=== PATIENT | male | born 1960 | race Caucasian/White ===

== ENCOUNTER 2019-06-06 14:21 | Outpatient (CLI) | payer OTHER, SELFPAY ==
--- NOTE | ~2019-06-06 | XR_ITS ---
EXAMINATION: XR chest 2V EXAM DATE: 06/06/2019 14:34 INDICATION: Cough. TECHNIQUE: Frontal and lateral projections of the chest obtained and reviewed. Comparison is made to prior examination from 04/05/2017. FINDINGS: Biapical opacities unchanged, consistent with scarring. Severe chronic hyperinflation with narrow cardiac silhouette. Left upper lobe nodule is unchanged, consistent with benign process. No a cute airspace disease, pneumothorax or pleural effusion. There are mild bony degenerative changes. Mi ld mid thoracic compression fracture unchanged. IMPRESSION: 1. Chronic findings as above. Reviewed, dictated and finalized at location A. LOT PACKER
== END 2019-06-06 14:22 | disposition home or self-care (01) ==
PROVIDERS: PCP Internal Medicine; Visit Provider Nurse Practitioner
DX: R05 Cough (principal)
CPT/HCPCS: 71046

== ENCOUNTER 2019-06-10 11:06 | Emergency (ER) | payer OTHER, SELFPAY ==
--- NOTE | ~2019-06-10 | CT_ITS ---
EXAMINATION: CT abdomen pelvis w con DATE: 06/10/2019 12:50 INDICATION: Mid abdominal pain. History of testicular cancer. TECHNIQUE: Computed tomography (CT) of the abdomen and pelvis was performed with 100 cc Omnipaque 350 intravenous contrast. Automated exposure control and iterative reconstruction technique were employe d. Exam dose: 179.39 mGy-cm total exam DLP. COMPARISON: 02/17/2017 PET/CT scan FINDINGS: Emphysematous changes are evident in both lower lung zones. Normal heart size. No pericardial or pleural effusion. The gallbladder is relatively contracted. There is some enhancement of the gallbladder wall. No obvio us gallstones is noted. No pericholecystic fluid. No bile duct dilatation is noted. No hepatic space-occupying mass lesion. Borderline prominence of the pancreatic duct at approximately 2 mm diameter. No pancreatic mass lesio n is evident. Normal splenic size. Normal morphology of the adrenal glands. The left kidney is incompletely rotated, the left renal hilum directed anteriorly. There is a several millimeter left renal cyst. The right kidney is unremarkable except for focal scarring posteromedial ly in the mid right kidney. No urinary tract calculus or hydroureteronephrosis.. There is atherosclerotic calcification of the abdominal aorta and iliac arteries but no abdominal aor tic aneurysm. There are numerous surgical clips in the periaortic and aortocaval region. No intraperi toneal or retroperitoneal or pelvic mass lesion or adenopathy or ascites is evident. The prostate appears moderately prominent in size. There is mild diffuse thickening of the urinary bl adder wall. There is minimal free fluid in the dependent pelvis. Minimal colonic diverticulosis. There is a prominent amount of fecal material in the colon. No bowel obstruction is evident. No CT evidence of appendicitis. No bowel obstruction or intraperitoneal free air. There is mild cupping and prominent Schmorl's node of the superior vertebral endplate of L5. No suspicious osteolytic or osteoblastic lesions. IMPRESSION: Emphysema Postoperative changes of the abdomen; no abdominal or pelvic mass or lymphadenopathy is detected Small left renal cysts Minimal colonic diverticulosis Reviewed, dictated and finalized at Location A. Reviewed, dictated and finalized at location A. O CONSULTANT IMPRESSION: Emphysema Postoperative changes of the abdomen; no abdominal or pelvic mass or lymphadeno kyle is detected Small left renal cysts Minimal colonic diverticulosis
[2019-06-10 11:08] VITALS: BP 138/83; PULSE 92; RESP 16; TEMP 37.2; O2SAT 98
[2019-06-10 11:32] LABS: Basophils Percent Auto 0.2 % (0.2-1.2); Hematocrit 43.4 % (42.0-52.0); Hemoglobin 13.7 g/dL (14.0-18.0); Immature Granulocyte Absolute 0.03 K/mm3 (0.00-0.031); Immature Granulocyte Percent A 0.2 % (0-0.5); Lymphocytes Percent Auto 20.3 % (18.3-44.2); Mean Corpuscular HGB Conc 31.6 g/dl (32-36); Mean Corpuscular Hemoglobin 29.4 pg (26-34); Mean Corpuscular Volume 93.1 fl (80-100); Mean Platelet Volume 9.4 fl (7.4-10.4); Monocytes Absolute Auto 0.8 K/mm3 (0.1-0.6); Monocytes Percent Auto 5.8 % (2.6-8.5); Neutrophils Absolute Auto 9.8 K/mm3 (1.3-6.7); Neutrophils Percent Auto 73.5 % (45.5-73.1); Platelet Count Result 312 k/mm3 (150-375); Red Blood Count 4.66 M/mm3 (4.6-6.20); Red Cell Distribution Width 13.2 % (11.5-14.5); White Blood Count 13.3 K/mm3 (4.5-10.0)
[2019-06-10 11:44] LABS: Alanine Aminotransferase 33 U/L (4-50); Albumin Level 4.6 g/dL (3.5-5.1); Alkaline Phosphatase 148 U/L (38-126); Aspartate Amino Transferase 27 U/L (17-59); Bilirubin,Total 0.7 mg/dL (0.2-1.3); Blood Urea Nitrogen 13 mg/dL (9-20); Calcium 9.5 mg/dL (8.4-10.2); Carbon Dioxide 31 mmol/L (22-30); Chloride 96 mmol/L (98-107); Estimated CRCL calculation 64 ml/min; Estimated Glomerular Filt Rate > 60; Glucose 91 mg/dL (75-110); Lipase 77 U/L (23-300); Potassium 3.5 mmol/L (3.4-5.0); Sodium 139 mmol/L (137-145)
--- NOTE | 2019-06-10 12:22 | ED.ABDPAIN ---
HPI - Abdominal Pain General Chief Complaint: Abdominal Pain Stated Complaint: abd pains Time Seen by Provider: 06/10/19 11:50 Source: patient Mode of arrival: ambulatory Limitations: no limitations History of Present Illness HPI narrative: This is a 58 year old male that presents to the ER for mid abdominal pain x 2 days. Reports he was seen by his PCP and started on antibiotics and a steroid for a respiratory infection. Reports the day after he started taking these he started to develop constant mid abdominal pain. Denies fever, chest pain, shortness of breath, vomiting, diarrhea, dysuria or hematuria. Related Data Home Medications Medication Instructions Recorded Confirmed diclofenac sodium 75 mg 75 mg PO BID 05/11/19 05/11/19 tablet,delayed release Allergies Allergy/AdvReac Type Severity Reaction Status Date / Time No Known Allergies Allergy Verified 06/10/19 11:29 Review of Systems Review of Systems: Narrative: CONSTITUTIONAL: Denies fever ENT: Reports congestion CARDIOVASCULAR: Denies chest pain RESPIRATORY: Reports cough. Denies dyspnea. GASTROINTESTINAL: Reports abdominal pain. Denies nausea, vomiting, or diarrhea. GENITOURINARY: Denies dysuria or hematuria. All systems reviewed & are unremarkable except as noted in HPI and below [facility] Social History Social History Smoking status: Former smoker Alcohol intake: current Substance use: never Gender identity (if verbalized by the patient): Male Exam Narrative: Exam Narrative: GENERAL: Well-appearing, this, and in no acute distress. HEAD: Normocephalic, atraumatic. EYES: PERRLA and EOMI. ENT: Nares clear, no rhinorrhea or epistaxis. Mucous membranes moist. Oropharynx without tonsillar hypertrophy exudate or other lesions. Bilateral TMs pearly lopez non-bulging NECK: Supple. No adenopathy or masses. CHEST: Clear to auscultation. No respiratory distress. No wheezes rales or rhonchi HEART: Regular rate and rhythm. No murmur heard. Normal peripheral pulses. ABDOMEN: Soft, nondistended, normal active bowel sounds. Mild tenderness to palpation throughout abdomen, without guarding EXTREMITIES: Normal range of motion. No edema. SKIN: Warm, dry, no rash. NEURO: No focal deficits. Alert and oriented x3. PSYCH: Normal mood and affect Course Vital Signs Vital signs: Vital Signs Temperature 98.9 F 02/09/20 11:08 Pulse Rate 92 06/10/19 11:08 Respiratory Rate 16 06/10/19 11:08 Blood Pressure 138/83 06/10/19 11:08 Pulse Oximetry 98 06/10/19 11:08 Temperature 98.9 F 06/10/19 13:27 Pulse Rate 59 L 06/10/19 13:27 Respiratory Rate 18 06/10/19 13:27 Blood Pressure 134/78 06/10/19 13:27 Pulse Oximetry 97 06/10/19 13:27 MDM - Abdominal Pain MDM Narrative Medical decision making narrative: Patient presents the emergency department for abdominal pain x2 days. Reports he was recently seen by his primary care doctor and placed on an antibiotic for respiratory infection. Patient is afebrile and nontoxic-appearing. Vitals are stable. CBC with mild leukocytosis to 13.3. Patient was also recently on a steroid. Also mild normocytic anemia which seems to be chronic for him. Metabolic panel without acute changes. UA without evidence of infection. CT abdomen pelvis is without acute changes. Patient reports improvement with Tylenol, Pepcid and Zofran. He was instructed to follow-up with his primary care doctor. He was given warnings to return to the ER Lab Data Attestation: I reviewed the patient's lab results. Result diagrams: 06/10/19 11:22 06/10/19 11:22 Labs: Lab Results 06/10/19 06/10/19 06/10/19 Range/Units 11:22 11:22 13:20 WBC 13.3 H (4.5-10.0) K/mm3 RBC 4.66 (4.6-6.20) M/mm3 Hgb 13.7 L (14.0-18.0) g/dL Hct 43.4 (42.0-52.0) % MCV 93.1 (80-100) fl MCH 29.4 (26-34) pg MCHC 31.6 L (32-36) g/dl R
[2019-06-10] MEDS: FAMOTIDINE 20 MG/2 ML VIAL IV PUSH (12:46)
[2019-06-10] MEDS: ONDANSETRON INJ 4 MG/2 ML VIAL IV PUSH (12:46)
[2019-06-10 13:27] VITALS: BP 134/78; PULSE 59; RESP 18; TEMP 37.2; O2SAT 97
[2019-06-10 13:30] LABS: Add Urine Microscopic? YES; Appearance Urine Clear (Clear); Bilirubin Urine Negative (Negative); Blood Urine Negative (Negative); Color Urine Yellow (Yellow); Glucose Urine UA Negative (Negative); Ketones Urine Negative (Negative); Leukocyte Esterase Ur Negative LEU/UL (Negative); Mucus Urine Rare /lpf; Nitrate Urine Negative (Negative); Protein Urine Negative (Negative); RBC Urine 0-2 /hpf (0-2); Squamous Epithelial Cell Urine Rare /hpf (Few); WBC Urine 0-3 /hpf
[2019-06-10 13:34] LABS: Specific Grav Ur 1.046 (1.001-1.035)
[2019-06-10 14:21] VITALS: BP 115/76; PULSE 77; RESP 18; O2SAT 99
== END 2019-06-10 14:22 | disposition home or self-care (01) ==
PROVIDERS: Emergency Provider Emergency Medicine; PCP Internal Medicine
DX: R10.9 Unspecified abdominal pain (principal); Z87.891 Personal history of nicotine dependence; J43.9 Emphysema, unspecified; N28.1 Cyst of kidney, acquired; K57.90 Diverticulosis of intestine, part unspecified, without perforation or abscess without bleeding
CPT/HCPCS: 36415; 74177; 80053; 81001; 83690; 85025; 96365; 96375; 99284; J0131; J2405; Q9967

== ENCOUNTER 2020-05-03 08:40 | Outpatient (CLI) | payer OTHER, SELFPAY ==
[2020-05-03 09:30] LABS: Hematocrit 39.5 % (42.0-52.0); Hemoglobin 12.7 g/dL (14.0-18.0); Mean Corpuscular HGB Conc 32.2 g/dl (32-36); Mean Corpuscular Hemoglobin 29.7 pg (26-34); Mean Corpuscular Volume 92.3 fl (80-100); Mean Platelet Volume 9.6 fl (7.4-10.4); Platelet Count Result 273 k/mm3 (150-375); Red Blood Count 4.28 M/mm3 (4.6-6.20); Red Cell Distribution Width 12.8 % (11.5-14.5); White Blood Count 6.5 K/mm3 (4.5-10.0)
[2020-05-03 09:50] LABS: Alanine Aminotransferase 27 U/L (4-50); Albumin Level 4.2 g/dL (3.5-5.1); Alkaline Phosphatase 116 U/L (38-126); Anion Gap 4 mmol/L (8-16); Aspartate Amino Transferase 33 U/L (17-59); Bilirubin,Total 0.3 mg/dL (0.2-1.3); Blood Urea Nitrogen 11 mg/dL (9-20); Calcium 9.3 mg/dL (8.4-10.2); Carbon Dioxide 33 mmol/L (22-30); Chloride 102 mmol/L (98-107); Cholesterol 189 mg/dL (0-200); Estimated Glomerular Filt Rate > 60; Glucose 104 mg/dL (75-110); HDL Direct 48 mg/dL; Sodium 139 mmol/L (137-145); Triglycerides 164 mg/dL (<150)
[2020-05-03 10:01] LABS: LDL Cholesterol Direct 126 mg/dL
[2020-05-03 10:19] LABS: Thyroid Stimulating Hormone 0.626 uIU/mL (0.465-4.680)
[2020-05-03 10:45] LABS: Hemoglobin A1C 5.5 % (<5.7)
== END 2020-05-03 08:41 | disposition home or self-care (01) ==
PROVIDERS: PCP Internal Medicine; Visit Provider Nurse Practitioner
DX: D72.829 Elevated white blood cell count, unspecified (principal); Z13.6 Encounter for screening for cardiovascular disorders; Z13.1 Encounter for screening for diabetes mellitus; Z13.29 Encounter for screening for other suspected endocrine disorder
CPT/HCPCS: 36415; 80053; 80061; 83036; 84443; 85027

== ENCOUNTER 2020-07-11 14:46 | Outpatient (CLI) | payer OTHER, SELFPAY | END 2020-07-11 14:47 | disposition home or self-care (01) | LOC: ANHCOVIDVC 14:46 | PROVIDERS: PCP Internal Medicine | DX: Z23 Encounter for immunization (principal) | CPT/HCPCS: 0001A; 91300 ==

== ENCOUNTER 2020-08-01 14:46 | Outpatient (CLI) | payer OTHER, SELFPAY | END 2020-08-01 14:47 | disposition home or self-care (01) | LOC: ANHCOVIDVC 14:46 | PROVIDERS: PCP Internal Medicine | DX: Z23 Encounter for immunization (principal) | CPT/HCPCS: 0002A; 91300 ==

== ENCOUNTER 2020-09-06 07:01 | Outpatient (CLI) | payer OTHER, SELFPAY ==
[2020-09-06 07:14] LABS: Basophils Absolute Auto 0.1 K/mm3 (0.0-0.1); Basophils Percent Auto 0.9 % (0.2-1.2); Eosinophils Absolute Auto 0.1 K/mm3 (0-0.3); Eosinophils Percent Auto 1.9 % (0-4.4); Hematocrit 44.7 % (42.0-52.0); Hemoglobin 14.4 g/dL (14.0-18.0); Immature Granulocyte Absolute 0.02 K/mm3 (0.00-0.031); Immature Granulocyte Percent A 0.3 % (0-0.5); Lymphocytes Absolute Auto 1.78 K/mm3 (0.9-3.2); Lymphocytes Percent Auto 25.7 % (18.3-44.2); Mean Corpuscular HGB Conc 32.2 g/dl (32-36); Mean Corpuscular Hemoglobin 29.4 pg (26-34); Mean Corpuscular Volume 91.4 fl (80-100); Mean Platelet Volume 9.9 fl (7.4-10.4); Monocytes Absolute Auto 0.6 K/mm3 (0.1-0.6); Monocytes Percent Auto 9.2 % (2.6-8.5); Neutrophils Absolute Auto 4.3 K/mm3 (1.3-6.7); Platelet Count Result 202 k/mm3 (150-375); Red Blood Count 4.89 M/mm3 (4.6-6.20); Red Cell Distribution Width 12.9 % (11.5-14.5); White Blood Count 6.9 K/mm3 (4.5-10.0)
[2020-09-06 13:37] LABS: Iron 122 ug/dL (49-181)
[2020-09-06 13:46] LABS: Percent Iron Saturation 41 % (20-50)
== END 2020-09-06 07:02 | disposition home or self-care (01) ==
PROVIDERS: PCP Internal Medicine; Visit Provider Internal Medicine
DX: D64.9 Anemia, unspecified (principal)
CPT/HCPCS: 36415; 82728; 83540; 83550; 85025

== ENCOUNTER 2020-09-13 10:33 | Outpatient (CLI) | payer OTHER, SELFPAY ==
[2020-09-13 11:35] LABS: Prostate Specific Antigen 0.3 ng/mL (< OR = 4.0)
== END 2020-09-13 10:34 | disposition home or self-care (01) ==
PROVIDERS: PCP Internal Medicine; Visit Provider Internal Medicine
DX: Z12.5 Encounter for screening for malignant neoplasm of prostate (principal)
CPT/HCPCS: 36415; 84153; G0103

== ENCOUNTER 2021-03-07 10:28 | Outpatient (CLI) | payer OTHER, SELFPAY ==
[2021-03-07 10:52] LABS: Hematocrit 44.3 % (42.0-52.0); Hemoglobin 14.4 g/dL (14.0-18.0)
[2021-03-07 11:00] LABS: Anion Gap 10 mmol/L (8-16); Blood Urea Nitrogen 11 mg/dL (9-20); Calcium 9.7 mg/dL (8.4-10.2); Carbon Dioxide 30 mmol/L (22-30); Chloride 101 mmol/L (98-107); Cholesterol 207 mg/dL (0-200); Estimated Glomerular Filt Rate > 60; Glucose 105 mg/dL (65-110); HDL Direct 57 mg/dL; Potassium 4.1 mmol/L (3.4-5.0); Sodium 141 mmol/L (137-145); Triglycerides 90 mg/dL (<150)
[2021-03-07 11:11] LABS: LDL Cholesterol Direct 130 mg/dL
[2021-03-07 11:30] LABS: Iron 96 ug/dL (49-181)
[2021-03-07 11:41] LABS: Percent Iron Saturation 30 % (20-50)
== END 2021-03-07 10:29 | disposition home or self-care (01) ==
LOC: ANHLAB 10:31
PROVIDERS: PCP Internal Medicine; Visit Provider Internal Medicine
DX: D64.9 Anemia, unspecified (principal); Z13.6 Encounter for screening for cardiovascular disorders; Z13.220 Encounter for screening for lipoid disorders
CPT/HCPCS: 36415; 80048; 80061; 83540; 83550; 85014; 85018

== ENCOUNTER 2021-04-22 16:07 | Outpatient (CLI) | payer OTHER, SELFPAY ==
--- NOTE | ~2021-04-22 | CT_ITS ---
EXAMINATION: CT lung screening DATE: 04/22/2021 16:20 INDICATION: Personal history of nicotine dependence TECHNIQUE: Computed tomography (CT) of the chest was performed without intravenous contrast. The dose -length product was 73.54 mGy-cm. Automated exposure control and iterative reconstruction technique w ere employed. COMPARISON: CT dated 11/26/2017 FINDINGS: Moderate emphysema. There is cavitary mass at the left apex with irregular thickened margin s measuring 6.2 x 5 x 4.1 cm. This mass has progressed in size compared with prior examination. There is right apical pleural thickening/scarring with mild upper lobe bronchiectasis. There is a right pe rifissural nodule measuring 9 mm, axial image 51. The findings in the right upper lobe/apex are uncha nged from prior examination. There is a nodule in the right upper lobe measuring 5 mm greatest dimens ion with internal calcifications, likely postinfectious/inflammatory. No significant pleural or peric ardial effusion. There is atherosclerosis of the aorta and coronary arteries. There are multiple radi odensities overlying the upper abdomen in the retroperitoneum, postsurgical. IMPRESSION: 1. Lung Rads 4B Very Suspicious-recommend follow-up PET/CT scan to assess for abnormal FDG uptake in the upper lobe abnormalities. Alternatively, percutaneous biopsy may be performed. Reviewed, dictated and finalized at location A. DEVELOPER IMPRESSION: 1. Lung Rads 4B Very Suspicious-recommend follow-up PET/CT scan to assess for a bnormal FDG uptake in the upper lobe abnormalities. Alternatively, percutaneous biopsy may be performed.
== END 2021-04-22 16:08 | disposition home or self-care (01) ==
LOC: ANHIMG 16:11
PROVIDERS: PCP Internal Medicine; Visit Provider Nurse Practitioner
DX: Z12.2 Encounter for screening for malignant neoplasm of respiratory organs (principal); Z87.891 Personal history of nicotine dependence
CPT/HCPCS: 71271

== ENCOUNTER 2021-05-26 12:03 | Outpatient (CLI) | payer OTHER, SELFPAY ==
--- NOTE | ~2021-05-26 | PE_ITS ---
EXAMINATION: PET skull to mid thigh DATE: 05/26/2021 14:10 INDICATION: Other nonspecific abnormal finding of lung field. Lung nodule. TECHNIQUE: Blood glucose level was 79 mg/dL. 10.964 mCi of 18-fluorodeoxyglucose (18-FDG) was adminis tered i.v. Low dose computed tomography (CT) images were acquired from the base of the brain to the p roximal thighs for attenuation correction and anatomic localization. Automated exposure control was e mployed. Dose-length product (DLP) was 231 mGy-cm. Positron emission tomography (PET) images were acq uired in the same distribution. COMPARISON: Chest CT 04/22/2021, 11/26/2017, CT abdomen and pelvis 06/10/2019 FINDINGS: Head/neck: There is increased activity in the pharynx without abnormal CT correlate, likely physiolog ic. There are no pathologically enlarged lymph nodes. Chest: There is moderate emphysema. There are chronic airspace opacities with volume loss at right richmond ng apex without increased activity, consistent with scarring. There are airspace opacities with cavit ation without increased activity at left lung apex with change in distribution and morphology from , consistent with scarring. There is an 8 mm nodule with central calcifications without increa sed activity in left upper lobe with improvement from 05/26/2021. There is a 10 mm nodule in right mid dle lobe without increased activity, new from 04/22/21, likely benign. No pleural effusion. The heart size is normal. There are coronary artery calcifications. No pericardial effusion. Abdomen/pelvis/proximal thighs: The liver, gallbladder, spleen, pancreas, right adrenal gland, and ki dneys are normal. There are surgical clips in the retroperitoneum. There are no dilated loops of janay l. There are no pathologically enlarged lymph nodes. There is no free intraperitoneal fluid. IMPRESSION: 1. Multifocal lung findings, likely benign. Continue annual screening with noncontrast low-dose chest CT in 12 months. 2. Moderate emphysema. Reviewed, dictated and finalized at location A. ICULUM WRITER IMPRESSION: 1. Multifocal lung findings, likely benign. Continue annual screening with nonc ontrast low-dose chest CT in 12 months. 2. Moderate emphysema.
[2021-05-26 12:25] LABS: Glucose Point of Care 79 mg/dl (65-105)
== END 2021-05-26 12:04 | disposition home or self-care (01) ==
PROVIDERS: PCP Internal Medicine; Visit Provider Nurse Practitioner
DX: R91.8 Other nonspecific abnormal finding of lung field (principal)
CPT/HCPCS: 78815; A9552

== ENCOUNTER 2022-02-18 10:01 | Outpatient (CLI) | payer OTHER, SELFPAY ==
--- NOTE | 2022-02-26 15:38 | WPDPFTINT ---
PFT Procedure Performed PFT Procedure Performed Spirometry with Pre/Post Bronchodilator Plethysmography (Lung Vol) Diffusing Cap (DLCO) Flow Vol Loop PFT Interpretation DOS: 02/18/2022 REQUESTING: Dr. Zamora REASON FOR TESTING: shortness of breath, emphysema PULMONARY FUNCTION TESTS Results are reliable and reproducible. Spirometry: pre bronchodilator FEV1 is 1.4 L, 38%, severely reduced. Pre bronchodilator FVC is 3.45 L, 73%, mildly reduced. FEV1 / FVC is 41% consistent with severe airflow obstruction. After bronchodilator administration there is a 1% increase in FEV1 and FVC, not significant. Lung volumes: Total lung capacity 106%, 7.57 L, normal. Residual volume 4.12 L, 178%, severe air trapping. RV/TLC is increased 54% consistent with air trapping. Airway resistance elevated 281%. Diffusion: DLCO 13.7, 48% predicted, moderately reduced. DLCO/ VA is 3.28, 79% normal. Flow volume loop: Extreme coving of the expiratory limb consistent with obstruction. IMPRESSION: Severe obstructive ventilatory impairment, severe air trapping and severe diffusion impairment which corrects for alveolar volume. There is no response to bronchodilator. Lack of response to bronchodilator should not preclude use if clinically indicated. Compared to a prior PFT on 07/23/2016 the FEV1 is lower, there is more obstruction, more air trapping, and a larger decreased in diffusion, consistent with progression of emphysema. FEV1 was 1.67 L, 49% and is now 1.4 L, 38%. FVC was 3.17 L and now 3.45 L, has improved now 73% predicted previously 67%. Airflow obstruction was present. There was a significant response to bronchodilator on the prior study FEV1 increased 24% and FVC increased 22%. The total lung capacity was normal 6.9 L, 103%. Air trapping was present residual volume 3.54 154%. Air trapping is worsen. The DLCO was 63% now is 48% however the absolute value has improved, currently 13.7 mils per minute per mm mercury previously was 12.3. Paige Hampton MD
--- NOTE | 2022-02-26 15:50 | WPDSIXMINUTE ---
Six Minute Walk Procedure Procedure Performed Pulmonary Stress Test (6 min walk) Six Minute Walk Six Minute Walk: DOS: ? 02/18/2022 REQUESTING:? Dr. Zamora REASON FOR TESTING: ? shortness of breath, emphysema SIX MINUTE WALK This test was conducted per ats guidelines. Initial saturation was 98% and pulse was 99. The patient walked while breathing room air. The lowest saturation while walking was 94%. Maximum heart rate 107. Distance walked was 1100 ft, 335 m. Patient did not stop to rest. At the end of the study saturation was 94% pulse was 107. After 2 minutes of recovery saturation returned to 98% pulse was 94. IMPRESSION: This is a normal walk study. There is no requirement for oxygen with exertion. Distance walked is adequate for age.
== END 2022-02-18 10:02 | disposition home or self-care (01) ==
LOC: ANHPFT 10:02
PROVIDERS: PCP Internal Medicine; Visit Provider Internal Medicine Pulmonary Disease
DX: J40 Bronchitis, not specified as acute or chronic (principal); R06.00 Dyspnea, unspecified; Z72.0 Tobacco use
CPT/HCPCS: 94060; 94618; 94726; 94729

== ENCOUNTER 2022-04-28 09:15 | Outpatient (CLI) | payer OTHER, SELFPAY ==
--- NOTE | ~2022-04-28 | CT_ITS ---
EXAMINATION: CT lung screening DATE: 04/28/2022 09:41 INDICATION: Personal history of nicotine dependence, prior smoker with 67 pack year history TECHNIQUE: Computed tomography (CT) of the chest was performed without intravenous contrast. The dose -length product (DLP) was 67.81 mGy-cm. Automated exposure control and iterative reconstruction techn Dockerue were employed. COMPARISON: 04/22/2021 FINDINGS: There is moderate emphysema. An area of chronic scarring and cavitation is noted in the lef t lung apex. There is chronic scarring of the right lung apex. There are stable 3 mm and 7 mm nodules of the right upper lobe. No pleural effusion or pneumothorax. No pathologically enlarged thoracic ly mph nodes are identified. The heart size is normal. There is calcified coronary artery atherosclerosi s. Retroperitoneal surgical clips are noted. IMPRESSION: 1. Lung-RADS category 2: Benign appearance or behavior. Continue annual screening with noncontrast lo w-dose chest CT in 12 months. Reviewed, dictated and finalized at location B. SAFETY DIRECTOR IMPRESSION: 1. Lung-RADS category 2: Benign appearance or behavior. Continue annual screeni ng with noncontrast low-dose chest CT in 12 months.
== END 2022-04-28 09:16 | disposition home or self-care (01) ==
PROVIDERS: PCP Internal Medicine; Visit Provider Internal Medicine Pulmonary Disease
DX: Z12.2 Encounter for screening for malignant neoplasm of respiratory organs (principal); Z87.891 Personal history of nicotine dependence
CPT/HCPCS: 71271

== ENCOUNTER 2022-05-22 10:10 | Outpatient (CLI) | payer OTHER, SELFPAY ==
[2022-05-22 11:02] LABS: Anion Gap 4 mmol/L (8-16); Blood Urea Nitrogen 8 mg/dL (9-20); Calcium 8.9 mg/dL (8.4-10.2); Carbon Dioxide 32 mmol/L (22-30); Chloride 104 mmol/L (98-107); Cholesterol 196 mg/dL (0-200); Estimated Glomerular Filt Rate > 60; Glucose 102 mg/dL (65-110); HDL Direct 45 mg/dL; Sodium 140 mmol/L (137-145); Triglycerides 79 mg/dL (<150)
[2022-05-22 11:14] LABS: LDL Cholesterol Direct 119 mg/dL
[2022-05-22 11:32] LABS: Prostate Specific Antigen 0.3 ng/mL (< OR = 4.0)
== END 2022-05-22 10:11 | disposition home or self-care (01) ==
LOC: ANHLAB 10:12
PROVIDERS: PCP Internal Medicine; Visit Provider Internal Medicine
DX: Z13.220 Encounter for screening for lipoid disorders (principal); Z12.5 Encounter for screening for malignant neoplasm of prostate; Z13.6 Encounter for screening for cardiovascular disorders
CPT/HCPCS: 36415; 80048; 80061; 84153; G0103

== ENCOUNTER 2022-06-07 15:53 | Outpatient (CLI) | payer OTHER, SELFPAY ==
[2022-06-09 18:48] LABS: PCP NEGATIVE ng/mL (<25)
[2022-06-14 08:45] LABS: Amphetamines Negative; Barbiturates Negative; Marijuana Metabolites Positive
[2022-06-14 08:46] LABS: Benzodiazepines Negative; Cocaine Metabolites Negative
== END 2022-06-07 15:54 | disposition home or self-care (01) ==
PROVIDERS: PCP Internal Medicine; Visit Provider Internal Medicine
DX: Z79.899 Other long term (current) drug therapy (principal)
CPT/HCPCS: 80307

== ENCOUNTER 2023-04-29 12:29 | Outpatient (CLI) | payer OTHER, SELFPAY ==
--- NOTE | ~2023-04-29 | CT_ITS ---
EXAMINATION: CT lung screening DATE: 04/29/2023 12:45 INDICATION: Lung cancer screening. Personal history of nicotine dependence. TECHNIQUE: Computed tomography (CT) of the chest was performed without intravenous contrast. The dose -length product was 80.64 mGy-cm. Automated exposure control and iterative reconstruction technique w ere employed. COMPARISON: CT dated 04/28/2022 FINDINGS: Stable pleural thickening/scarring at the lung apices with cavitation at the left apex. Sta ble scarring along the major fissure on the right with nodularity measuring 6 mm along the fissure. S evere emphysema. There is atherosclerosis of the aorta and coronary arteries. No significant pleural or pericardial ef fusion. There are surgical changes in the upper abdomen. No thoracic lymphadenopathy. Stable 3 mm rig ht upper lobe nodule. Mild wedge compression deformities of the midthoracic spine, likely chronic. Ac centuated kyphosis. No focal lytic or blastic lesions. IMPRESSION: 1. Lung-RADS category 2: Benign appearance or behavior. Continue annual screening with noncontrast lo w-dose chest CT in 12 months. Reviewed, dictated and finalized at location A. MERY WORKER IMPRESSION: 1. Lung-RADS category 2: Benign appearance or behavior. Continue annual screeni ng with noncontrast low-dose chest CT in 12 months.
== END 2023-04-29 12:30 | disposition home or self-care (01) ==
LOC: ANHIMG 12:32
PROVIDERS: PCP Nurse Practitioner; Visit Provider Internal Medicine Pulmonary Disease
DX: Z12.2 Encounter for screening for malignant neoplasm of respiratory organs (principal); R91.8 Other nonspecific abnormal finding of lung field; Z87.891 Personal history of nicotine dependence
CPT/HCPCS: 71271

== ENCOUNTER 2023-06-04 09:28 | Outpatient (CLI) | payer OTHER, SELFPAY ==
[2023-06-04 10:24] LABS: Hemoglobin 13.1 g/dL (14.0-18.0); Mean Corpuscular Volume 90.7 fl (80-100); Mean Platelet Volume 9.5 fl (7.4-10.4); Platelet Count Result 265 k/mm3 (150-375); Red Blood Count 4.52 M/mm3 (4.6-6.20); Red Cell Distribution Width 13.2 % (11.5-14.5); White Blood Count 5.2 K/mm3 (4.5-10.0)
[2023-06-04 10:34] LABS: Alanine Aminotransferase 16 U/L (6-50); Albumin Level 4.2 g/dL (3.5-5.1); Alkaline Phosphatase 97 U/L (38-126); Anion Gap 7 mmol/L (8-16); Aspartate Amino Transferase 26 U/L (17-59); Bilirubin,Total 0.7 mg/dL (0.2-1.3); Blood Urea Nitrogen 8 mg/dL (9-20); Carbon Dioxide 27 mmol/L (22-30); Chloride 104 mmol/L (98-107); Cholesterol 187 mg/dL (0-200); Estimated Glomerular Filt Rate > 60; Glucose 87 mg/dL (65-110); HDL Direct 50 mg/dL; Potassium 3.9 mmol/L (3.4-5.0); Sodium 138 mmol/L (137-145); Triglycerides 69 mg/dL (<150)
[2023-06-04 10:45] LABS: LDL Cholesterol Direct 120 mg/dL
[2023-06-04 11:05] LABS: Prostate Specific Antigen 0.4 ng/mL (< OR = 4.0)
== END 2023-06-04 09:29 | disposition home or self-care (01) ==
LOC: ANHLAB 09:29
PROVIDERS: PCP Nurse Practitioner; Visit Provider Nurse Practitioner
DX: Z00.00 Encounter for general adult medical examination without abnormal findings (principal); Z12.5 Encounter for screening for malignant neoplasm of prostate
CPT/HCPCS: 36415; 80053; 80061; 84153; 85027; G0103

== ENCOUNTER 2024-02-20 08:30 | Outpatient (CLI) | payer OTHER, SELFPAY ==
--- NOTE | ~2024-02-20 | NM_ITS ---
EXAMINATION: NM antonina stress w perfusion DATE: 02/20/2024 12:13 CDT INDICATION: Dyspnea TECHNIQUE: Rest images were obtained following intravenous administration of 10.2 mCi Tc99m tetrofosm in (Myoview). The patient was infused intravenously with Lexiscan (regadenoson). Then, 30 mCi Tc99m t etrofosmin (Myoview) was administered intravenously, and stress images were obtained. Data was recons tructed into short axis and horizontal and vertical long axis SPECT images. Gated SPECT images were a lso obtained. COMPARISON: None. FINDINGS: There is no definite reversible or fixed perfusion abnormality to suggest ischemia or infar ction. There is no segmental wall motion abnormality. Left ventricular ejection fraction measures 6 7%. IMPRESSION: 1. No definite ischemia or infarct. 2. Normal left ventricular ejection fraction measuring 67%. Reviewed, dictated and finalized at location B.
--- NOTE | 2024-02-20 08:43 | EST_ITS ---
Patient Info Name: Umer Velasquez Age: 63 years : 1960 Gender: Male Ht: 70 in Wt: 125 lbs BSA: 1.66 m2 HR: 55 bpm BP: 126 / 86 mmHg Exam Date: 02/20/2024 10:38 AM Exam Location: [facility] Lab Patient Status: Outpatient Admit Date: 02/20/2024 Staff Ordering Physician: Wily Mcgill DO Attending Provider: Wily Mcgill DO Exercise Technologist: Mary Herring RDCS Exercise Physician: Wily Mcgill DO Exam Type: CA stress antonina w NM Study Info A regadenoson stress test was performed. Summary 1. 1. Negative lexiscan stress test for ischemic ST changes by ECG criteria. 2. 2. Stable hemodynamics throughout the test. 3. 3. Nuclear scan to follow and will be reported separately. Please correlate with it. 4. 4. Patient informed of the above results. Protocol: Lexiscan Stress ECG Details Stage: REST Duration (min): 0 min : 58 sec HR (bpm): 54 SBP (mmHg): 126 DBP (mmHg): 86 Stage: REST Duration (min): 5 min : 30 sec HR (bpm): 66 SBP (mmHg): 126 DBP (mmHg): 86 Stage: STAGE 1 Duration (min): 0 min : 59 sec HR (bpm): 92 SBP (mmHg): 130 DBP (mmHg): 85 Stage: RECOVERY Duration (min): 1 min : 0 sec HR (bpm): 94 SBP (mmHg): 130 DBP (mmHg): 85 Stage: RECOVERY Duration (min): 2 min : 0 sec HR (bpm): 84 SBP (mmHg): 130 DBP (mmHg): 85 Stage: RECOVERY Duration (min): 3 min : 0 sec HR (bpm): 75 SBP (mmHg): 114 DBP (mmHg): 72 Stage: RECOVERY Duration (min): 3 min : 5 sec HR (bpm): 76 SBP (mmHg): 114 DBP (mmHg): 72 Rest HR: 66 bpm Peak HR: 98 bpm Rest Sys BP: 126 mmHg Peak Sys BP: 130 mmHg Max Pred HR: 157 bpm % Max Pred HR: 62 % Target HR: 133 bpm Max RPP: 12,740 bpm*mmHg Termination Reason: Completed protocol Cardiac Symptoms: Shortness of breath Total Time: 1 min : 0 sec Rest [place] BP: 86 mmHg Peak [place] BP: 85 mmHg Total Dose: 0.4 mg Resting ECG Sinus rhythm. Stress ECG No ST changes. Arrhythmias None. Report Signatures
--- NOTE | 2024-02-20 08:43 | ECHO_ITS ---
Patient Info Name: Umer Velasquez Age: 63 years : 1960 Gender: Male Ht: 70 in Wt: 125 lbs BSA: 1.66 m2 HR: 63 bpm BP: 106 / 70 mmHg Heart Rhythm: Sinus Rhythm Technical Quality: Good Exam Date: 02/20/2024 8:57 AM Exam Location: Echo Lab Patient Status: Outpatient Admit Date: 02/20/2024 Staff Ordering Physician: Wily Mcgill DO Tire Changer: Brianne Giraldo RDCS Attending Provider: Wily Mcgill DO Referring Physician: Artem GIBSON; Exam Type: CA echo doppler color flow Study Info Indications - other forms of dyspnea Complete two-dimensional, color flow and Doppler transthoracic echocardiogram is performed. Summary 1. Complete two-dimensional, color flow and Doppler transthoracic echocardiogram is performed. 2. Left ventricular chamber dimension is normal. 3. Left ventricular systolic function is normal, estimated at 60-65%. 4. The left ventricular diastolic function is grade I diastolic dysfunction. 5. E/e' 8 is minimally elevated. 6. There is trace tricuspid valve regurgitation. 7. No pulmonary hypertension, estimated pulmonary arterial systolic pressure is 32 mmHg. Left Ventricle E/e' 8 is minimally elevated. Left ventricular chamber dimension is normal. Left ventricular systolic function is normal, estimated at 60-65%. The left ventricular diastolic function is grade I diastolic dysfunction. Right Ventricle Right ventricular systolic function is normal and with normal TAPSE 2.0 cm. Right ventricular chamber dimension is normal. Left Atria Left atrial chamber dimension is normal. Right Atria Right atrial chamber dimension is normal. Aortic Valve The aortic valve is trileaflet. There is no aortic valve stenosis. There is no aortic valve regurgitation. Pulmonic Valve There is no pulmonic regurgitation. Mitral Valve There is no mitral valve stenosis. There is no mitral valve regurgitation. Tricuspid Valve There is trace tricuspid valve regurgitation. No pulmonary hypertension, estimated pulmonary arterial systolic pressure is 32 mmHg. Pericardium/Pleural There is no pericardial effusion. Inferior Vena Cava Normal inferior vena cava with >50% collapse upon inspiration consistent with normal right atrial pressure, 5 mmHg. Aorta The aortic root size at the sinus of Valsalva is normal. Left Ventricular Outflow Tract Name Value Normal LVOT 2D LVOT Diameter 1.9 cm LVOT Doppler LVOT Peak Gradient 2 mmHg LVOT Mean Gradient 1 mmHg LVOT VTI 19 cm LVOT VTI/AV VTI Ratio 0.9 LVOT Stroke Volume 51 ml LVOT CO 3.1 l/min LVOT CI 1.9 l/min/m2 Mitral Valve Name Value Normal MV Doppler MV [place] 437 cm/s2 MV PHT 57 ms MV Area (PHT)
== END 2024-02-20 08:31 | disposition home or self-care (01) ==
PROVIDERS: PCP Nurse Practitioner; Visit Provider Internal Medicine Cardiovascular Disease
DX: R06.09 Other forms of dyspnea (principal); I51.9 Heart disease, unspecified
CPT/HCPCS: 78452; 93017; 93306; A9502; J2785

== ENCOUNTER 2024-04-07 14:21 | Emergency (ER) | payer OTHER, SELFPAY ==
[2024-04-07 14:29] VITALS: BP 101/74; PULSE 70; RESP 19; TEMP 36.6; O2SAT 100
--- NOTE | 2024-04-07 14:47 | ED_ITS ---
HPI - Ear Problem General Chief complaint: Ear Stated complaint: Ear Time Seen by Provider: 04/07/24 14:29 Source: patient, family () and RN notes reviewed Mode of arrival: ambulatory Limitations: no limitations History of Present Illness HPI Narrative: Patient presents today with a left cerumen impaction x2 days with decreased hearing. He has been trying Debrox drops and flushing with water at home without relief. states she has been using something in the canal to try and remove it as well. Related Data Home Medications Medication Instructions Recorded Confirmed multivitamin (Daily Multi-Vitamin 1 tablet PO DAILY 12/16/23 04/07/24 tablet) Allergies Allergy/AdvReac Type Severity Reaction Status Date / Time methylprednisolone Allergy Severe Abdominal Verified 04/07/24 14:36 [From Medrol] pain Review of Systems Review of Systems: CONSTITUTIONAL: Denies body aches, fever, chills, or sweats. EYES: Denies visual changes, redness, or discharge. ENT: Denies rhinorrhea, congestion, sore throat, or otalgia.+ left cerumen impaction CARDIOVASCULAR: Denies chest pain, palpitations, or edema. RESPIRATORY: Denies cough or dyspnea. GASTROINTESTINAL: Denies abdominal pain, nausea, vomiting, or diarrhea. GENITOURINARY: Denies dysuria or hematuria. SKIN: Denies rash, itching, or wounds. MUSCULOSKELETAL: Denies back pain, joint pain, or myalgia. NEUROLOGIC: Denies headache, numbness, tingling, or weakness. PSYCH: Denies depression or anxiety. PMFSH Past Medical History Medical History Arthritis Polyarthritis Pulmonary nodules Testicular cancer Surgical History Surgical History History of cancer surgery Family History Family History Sibling Family history of cardiovascular disease Family history of coronary artery disease Family history of premature coronary heart disease Father Family history of primary malignant neoplasm of liver Mother Patient's mother is Social History Social History Smoking packs per day: 1.5 Smoking cigarettes per day: 30.0 Years smoked: 35 Smoking pack-years: 52.50 Smoking status: Former smoker Tobacco type: cigarettes Second hand tobacco smoke exposure: No Smoking end date: 05/02/16 Alcohol intake: never Substance use: current Substance use type: marijuana Other substance usage details: Sometimes jhony take gummies at bed time to help him sleep. Do You Feel Safe in your Home?: Yes Lack of Transportation: No Lack of Food: Never True Current Housing: I Have Housing Concerned About Future Housing: No Difficulty Paying Gas/Electric Bills: No Difficulty Paying for Meds: No Currently Unemployed: No Education: High School Diploma/GED Difficulty w/ Childcare or Family Care: No Living arrangements: alone Gender identity (if verbalized by the patient): Male Spiritual care concerns: No Comments At time of signature, I have reviewed and agree with nursing past medical, ellis rgical, social and family history unless otherwise noted. Please see nursing chart for further information. There is no relevant family history pertinent to the presenting complaint Exam Narrative: GENERAL: Well-appearing, well-nourished, and in no acute distress. HEAD: Normocephalic, atraumatic. EYES: EOMI. No redness or drainage. Conjunctivae normal. ENT: Mucous membranes pink and moist. Nares clear. Deep left cerumen impaction. NECK: Normal AROM. CHEST: No respiratory distress. EXTREMITIES: Normal range of motion. No edema. SKIN: Warm, dry, no rash. Capillary refill normal. Normal skin turgor. NEURO: No focal deficits. Alert and oriented x3. Gait steady. PSYCH: Normal affect. No signs of depression or anxiety. Course Course Level of Care: Express Care Visit Vital Signs Vital signs: Vital Signs Temperature 98 F 04/07/24 14:29 Pulse Rate 70 04/07/24 14:29 Respiratory Rate 19 04/07/24 14:29 Blood Pressure 101/74 04/07/24 14:29 Pulse Oximetry 100 04/07/24 14:29 Oxygen Delivery Room Air 04/07/24 14:29 Temperature 98 F 04/07/24 14:29 Pulse Rate 70 04/07/24 14:29 Respiratory Rate 19 04/07/24 14:29 Blood Pressure 101/74 04/07/24 14:29 Pulse Oximetry 100 04/07/24 14:29 Oxygen Delivery Room Air 04/07/24 14:29 Reviewed Procedures Ear Wax Removal Left Ear: Ear Wax Removal Date: 04/07/24 Ear Wax Removal Time: 14:35 Cerumenolytic Used: other (Water and small amount of hydrogen peroxide) Results: Re-examined: other (Unsuccessful removal) Ear Canal Exam: atraumatic Patient Tolerated Procedure: well Complications: no problems Technique: ear canal irrigated Additional Comments: unsuccessful removal. Recommend ENT follow up Medical Decision Making MDM Narrative Medical decision making narrative: Cerumen removal unsuccessful. Recommend ENT follow-up for further evaluation. Anticipatory guidance given. Differential Diagnosis Differential Diagnosis: Cerumen impaction, otitis media, otitis externa, ruptured TM, serous otitis Vital Signs Vital Signs: Vital Signs Temperature 98 F 04/07/24 14:29 Pulse Rate 70 04/07/24 14:29 Respiratory Rate 19 04/07/24 14:29 Blood Pressure 101/74 04/07/24 14:29 Pulse Oximetry 100 04/07/24 14:29 Oxygen Delivery Room Air 04/07/24 14:29 Temperature 98 F 04/07/24 14:29 Pulse Rate 70 04/07/24 14:29 Respiratory Rate 19 04/07/24 14:29 Blood Pressure 101/74 04/07/24 14:29 Pulse Oximetry 100 04/07/24 14:29 Oxygen Delivery Room Air 04/07/24 14:29 Critical Care Time Critical Care Time Critical Care Time: No Discharge Plan Discharge Clinical Impression: Impacted cerumen, left ear Patient Disposition: Home, Self-Care Condition: Stable Additional Instructions: The majority of your compacted ear wax was not able to be removed today. Recommend following up with ENT for proper removal. Prescriptions: No Action albuterol sulfate 90 mcg/actuation HFA aerosol inhaler 2 inh inhalation Q4H PRN (Reason: shortness of breath or wheezing) Qty: 8.5 2RF multivitamin [Daily Multi-Vitamin] Tablet 1 tablet PO DAILY Breztri Aerosphere 160-9-4.8 mcg/actuation HFA aerosol inhaler 2 inh inhalation QAM AND QPM Qty: 10.7 11RF Rx Instructions: Rinse and spit, use with spacer. tramadol 50 mg tablet 50 mg PO Q6H PRN (Reason: pain) Qty: 60 0RF Follow-up/Referrals: Nemesio Nuñez MD [Physician] - PHYSICIAN,WIRE SAW OPERATOR [Primary Care Provider] - Time of Disposition: 14:49
== END 2024-04-07 14:51 | disposition home or self-care (01) ==
PROVIDERS: Emergency Provider Nurse Practitioner
DX: H61.22 Impacted cerumen, left ear (principal); M19.90 Unspecified osteoarthritis, unspecified site; F12.90 Cannabis use, unspecified, uncomplicated; Z85.47 Personal history of malignant neoplasm of testis; Z87.891 Personal history of nicotine dependence
CPT/HCPCS: 69209; 99212; G0463

== ENCOUNTER 2024-05-04 10:02 | Outpatient (CLI) | payer OTHER, SELFPAY ==
--- NOTE | ~2024-05-04 | CT_ITS ---
CT Scan of the Chest without Contrast: Clinical Indication: Lung cancer screening, nicotine dependence Technique: Contiguous sections were acquired throughout the chest without intravenous contrast. Dose reduction technique was used on this scan by utilizing automated exposure control and iterative recon struction technique. The dose-length product (DLP) was 64.42 mGy-cm. COMPARISON: 04/20/2023 Findings: There is no evidence of any significant mediastinal, hilar or axillary lymphadenopathy. There are ath erosclerotic calcifications of the aorta and coronary arteries. There is no evidence of pleural or pericardial effusion. Stable biapical scarring and probable left apical bullous change. Moderate to advanced COPD present. Stable focal scarring right upper lobe. Images through the upper abdomen reveal no abnormalities. Impression: Lung RADS 2: Benign appearance. 12 month follow-up screening CT advised. Reviewed, dictated and finalized at [facility]. [place] [facility] Impression: Lung RADS 2: Benign appearance. 12 month follow-up screening CT advised.
== END 2024-05-04 10:03 | disposition home or self-care (01) ==
LOC: ANHIMG 10:05
PROVIDERS: PCP Nurse Practitioner; Visit Provider Nurse Practitioner Family
DX: Z12.2 Encounter for screening for malignant neoplasm of respiratory organs (principal); Z87.891 Personal history of nicotine dependence
CPT/HCPCS: 71271

== ENCOUNTER 2024-05-24 12:31 | Emergency (ER) | payer OTHER, SELFPAY ==
[2024-05-24] VITALS (27 sets, daily range): BP systolic 112–142; BP diastolic 72–99; PULSE 78–127; RESP 11–28; TEMP 36.9; O2SAT 95–100
--- NOTE | ~2024-05-24 | CT_ITS ---
EXAMINATION: CTA chest PE protocol DATE: 05/24/2024 14:55 INDICATION: Shortness of breath. TECHNIQUE: Computed tomography angiography (CTA) of the chest was performed with 100 mL Omnipaque-350 intravenous contrast timed to evaluate the pulmonary arteries. Coronal maximum intensity projection 3D-reconstructions were created by the technologist. Automated exposure control and iterative reconst ruction technique were employed. The dose-length product was 169.15 mGy-cm. COMPARISON: Chest CT 05/04/2024 FINDINGS: There is scarring at the lung apices. There is cavitation at left lung apex. There is sever e emphysema. No pleural effusion. There is severe stenosis of proximal left subclavian artery. Left v ertebral artery is not opacified at this early phase. The heart is small. No pericardial effusion. Th ere is no pulmonary embolus. There are surgical clips in the upper abdomen. There is mild chronic ant erior wedging of multiple vertebral bodies. IMPRESSION: 1. Severe emphysema. Scarring in the upper lobes. 2. No pulmonary embolus. 3. Severe stenosis of proximal left subclavian artery with lack of early opacification of the left ve rtebral artery, consistent with subclavian steal. Reviewed, dictated and finalized at location B. [facility] MAINTENANCE IMPRESSION: 1. Severe emphysema. Scarring in the upper lobes. 2. No pulmonary embolus. 3. Severe stenosis of proximal left subclavian artery with lack of early opacif ication of the left vertebral artery, consistent with subclavian steal.
--- NOTE | ~2024-05-24 | XR_ITS ---
EXAMINATION: XR chest 2V DATE: 05/24/2024 14:57 INDICATION: Cough and shortness of breath TECHNIQUE: PA and lateral views of the chest were obtained. COMPARISON: Chest CT dated 05/04/2024 FINDINGS: Hyperexpansion of lungs consistent with emphysema. There is moderate biapical pleural-parenchymal sca rring with cavitary lesion at the left apex. Additional mild reticular opacities in the right upper l fuad zone which could represent atelectasis or pneumonia. No pleural effusion or pneumothorax. Heart s ize is normal. Postoperative changes and residual clips in the upper abdomen. Mild to moderate thorac ic spondylosis with anterior wedging of a midthoracic vertebral body. IMPRESSION: 1. Emphysema with mild reticular opacities in the right upper lung zone which could represent atelect asis or pneumonia. Reviewed, dictated and finalized at location A. [facility] IMPRESSION: 1. Emphysema with mild reticular opacities in the right upper lung zone which c ould represent atelectasis or pneumonia.
--- NOTE | 2024-05-24 13:08 | ECG_ITS ---
Test Date: 2024-05-24 13:44:05 Measurements Intervals [place] Rate: 93 P: 89 MA: 131 QRS: 77 QRSD: 80 T: 71 QT: 309 QTc: 385 Interpretive Statements SINUS RHYTHM POSSIBLE RIGHT ATRIAL ENLARGEMENT [0.25mV P WAVE] POSSIBLE LEFT ATRIAL ENLARGEMENT [-0.1mV P WAVE IN V1/V2] POSSIBLE RIGHT VENTRICULAR CONDUCTION DELAY [RSR (QR) IN V1/V2] No previous ECG available for comparison Electronically Signed On 05-25-2024 11:49:52 PRINT PRODUCTION COORDINATOR by Brenda Bennett
--- NOTE | 2024-05-24 13:15 | ED_ITS ---
HPI - SOB/Dyspnea General Chief Complaint: Shortness of Breath/Dyspnea <Neli Becerril APRN - Last Filed: 05/24/24 13:18> Stated Complaint: cough, fever <Neli Becerril APRN - Last Filed: 05/24/24 13:18> Time Seen by Provider: 05/24/24 13:00 <Neli Becerril APRN - Last Filed: 05/24/24 13:18> Focused HPI: Patient is a 63-year-old male who presents to the ER with complaints of lower shortness of breath for approximately 1 week. His symptoms worsened 2 days ago so he called his primary care provider who put him on azithromycin. Patient reports his symptoms have not improved since then and he has been experiencing a frequent cough and wheezing. He has an inhaler at home that he has been using more frequently. Patient endorses history of COPD but denies any history of hypertension or diabetes. He denies chest pain, recent fevers, back pain. GENERAL: Ill-appearing, well-nourished, and in mild acute respiratory distress. HEAD: Normocephalic, atraumatic. CHEST: Clear to auscultation, no wheezing. ?Mild respiratory distress. Tachypnea. HEART: Tachycardia, regular rhythm. NEURO: ?Alert and oriented x3. Patient screened in triage and initial orders placed.? ?Additional care and disposition to be based upon?diagnostic testing and treatment. <Neli Becerril APRN - Last Filed: 05/24/24 13:18> History of Present Illness HPI Narrative: Patient is a 63-year-old gentleman who presents emergency department chief complaint of shortness of breath for the last week. Patient reports that he was started on Zithromax by his primary care provider reports that he has prior history of COPD and uses trilogy for his medication. Patient states that he gets short of breath with exertion reports that he has had frequent coughing and wheezing <Bishnu Mcghee MD - Last Filed: 05/24/24 19:32> Related Data Home Medications: Home Medications ?Medication ?Instructions ?Recorded ?Confirmed ?Last Taken ?Type multivitamin (Daily Multi-Vitamin 1 tablet PO DAILY 12/16/23 05/10/24 Unknown History tablet) magnesium 200 mg tablet 200 mg PO DAILY 05/10/24 05/10/24 Unknown History <Neli Becerril APRN - Last Filed: 05/24/24 13:18> Allergies/Adverse Reactions: Allergies Allergy/AdvReac Type Severity Reaction Status Date / Time methylprednisolone (From Allergy Severe Abdominal Verified 04/07/24 14:36 Medrol) pain <Neli Becerril APRN - Last Filed: 05/24/24 13:18> Review of Systems 2 Review of Systems: A 10 system review of systems was completed on the patient and is negative except for what is stated in the HPI. Nursing and ancillary documentation was reviewed. <Bishnu Mcghee MD - Last Filed: 05/24/24 19:32> [facility] Past Medical History Medical History: Medical History (Updated 05/24/24 @ 17:45 by Bishnu Mcghee MD) Polyarthritis Pulmonary nodules Testicular cancer Arthritis <Neli Becerril APRN - Last Filed: 05/24/24 13:18> Surgical History Surgical History: Surgical History History of cancer surgery <Neli Becerril APRN - Last Filed: 05/24/24 13:18> Family History Family History: Family History Sibling Family history of cardiovascular disease Family history of coronary artery disease Family history of premature coronary heart disease Father Family history of primary malignant neoplasm of liver Mother Patient's mother is <Neli Becerril APRN - Last Filed: 05/24/24 13:18> Social History Social History: Social History Smoking packs per day: 1.5 Smoking cigarettes per day: 30.0 Years smoked: 35 Smoking pack-years: 52.50 Smoking status: Former smoker Tobacco type: cigarettes Second hand tobacco smoke exposure: No Smoking end date: 05/02/16 Alcohol intake: never Substance use: current Substance use type: marijuana Other substance usage details: Sometimes jhony take gummies at bed time to help him sleep. Do You Feel Safe in your Home?: Yes Lack of Transportation: No Lack of Food: Never True Current Housing: I Have Housing Concerned About Future Housing: No Difficulty Paying Gas/Electric Bills: No Difficulty Paying for Meds: No Currently Unemployed: No Education: High School Diploma/GED Difficulty w/ Childcare or Family Care: No Living arrangements: alone Gender identity (if verbalized by the patient): Male Spiritual care concerns: No <Neli Becerril APRN - Last Filed: 05/24/24 13:18> Exam 2 Narrative: GENERAL: Well-appearing, well-nourished, and in no acute distress. HEAD: Normocephalic, atraumatic. EYES: PERRLA and EOMI. ENT: Nares clear, no rhinorrhea or epistaxis. Mucous membranes moist. NECK: Supple. CHEST: Clear to auscultation. No respiratory distress. HEART: Regular rate and rhythm. No murmur heard. Normal peripheral pulses. ABDOMEN: Soft, nontender, nondistended, normal active bowel sounds. EXTREMITIES: Normal range of motion. No edema. SKIN: Warm, dry, no rash. NEURO: No focal deficits. Alert and oriented x3. PSYCH: Normal mood and affect. <Bishnu Mcghee MD - Last Filed: 05/24/24 19:32> Course Vital Signs Vital signs: Vital Signs Temperature 36.9 C 05/24/24 13:00 Pulse Rate 127 H 05/24/24 13:00 Respiratory Rate 28 H 05/24/24 13:00 Blood Pressure 112/99 H 05/24/24 13:00 Pulse Oximetry 97 05/24/24 13:00 Oxygen Delivery Room Air 05/24/24 13:00 Temperature 36.9 C 05/24/24 13:00 Pulse Rate 87 05/24/24 19:00 Respiratory Rate 19 05/24/24 19:00 Blood Pressure 136/80 05/24/24 18:00 Pulse Oximetry 97 05/24/24 19:00 Oxygen Delivery Room Air 05/24/24 15:00 <Neli Becerril APRN - Last Filed: 05/24/24 13:18> Vital Signs Temperature 36.9 C 05/24/24 13:00 Pulse Rate 127 H 05/24/24 13:00 Respiratory Rate 28 H 05/24/24 13:00 Blood Pressure 112/99 H 05/24/24 13:00 Pulse Oximetry 97 05/24/24 13:00 Oxygen Delivery Room Air 05/24/24 13:00 Temperature 36.9 C 05/24/24 13:00 Pulse Rate 87 05/24/24 19:00 Respiratory Rate 19 05/24/24 19:00 Blood Pressure 136/80 05/24/24 18:00 Pulse Oximetry 97 05/24/24 19:00 Oxygen Delivery Room Air 05/24/24 15:00 <Bishnu Mcghee MD - Last Filed: 05/24/24 19:32> MDM - SOB/Dyspnea MDM Narrative Medical decision making narrative: Diagnosis includes pneumonia, pulmonary embolism, COVID, flu, RSV, COPD exacerbation With ambulation the patient becomes extremely tachycardic and tachypneic but did not drop his saturations. The patient is RSV positive chest x-ray question whether there was an infiltrate but CTA chest showed no evidence infiltrate but did show possibility of subclavian steal syndrome the patient will follow up on. Given the significant tachycardia with ambulation the case will be discussed the hospitalist for admission Patient given IV fluids and is feeling much better at this time heart rate came down to 110 with ambulation and no hypoxia. Patient is feeling much better and would like to go home <Bishnu Mcghee MD - Last Filed: 05/24/24 19:32> Lab Data Result diagrams: 05/24/24 13:51 05/24/24 13:51 <Neli Becerril APRN - Last Filed: 05/24/24 13:18> Labs: Lab Results 05/24/24 05/24/24 Range/Units 13:51 13:58 WBC 6.3 (4.5-10.0) K/mm3 RBC 5.06 (4.6-6.20) M/mm3 Hgb 15.1 (14.0-18.0) g/dL Hct 46.2 (42.0-52.0) % MCV 91.3 (80-100) fl MCH 29.8 (26-34) pg MCHC 32.7 (32-36) g/dl RDW 13.4 (11.5-14.5) % Plt Count 164 (150-375) k/mm3 MPV 9.2 (7.4-10.4) fl Immature Gran % (Auto) 0.3 (0-0.5) % Neut % (Auto) 62.5 (45.5-73.1) % Lymph % (Auto) 25.2 (18.3-44.2) % [place] % (Auto) 10.9 H (2.6-8.5) % Eos % (Auto) 0.6 (0-4.4) % Baso % (Auto) 0.5 (0.2-1.2) % Lymph # (Auto) 1.59 (0.9-3.2) K/mm3 [place] # (Auto) 0.7 H (0.1-0.6) K/mm3 Eos # (Auto) 0.0 (0-0.3) K/mm3 Baso # (Auto) 0.0 (0.0-0.1) K/mm3 Abs Immat Gran (auto) 0.02 (0.00-0.031) K/mm3 Absolute Neuts (auto) 3.9 (1.3-6.7) K/mm3 Absolute Nucleated RBC 0.000 (0.0-0.012) K/mm3 Nucleated RBC % 0.0 (0.0-0.2) % PT 13.4 (11.1-14.7) Seconds INR 1.0 APTT 32.1 (22.3-36.8) Seconds Sodium 139 (137-145) mmol/L Potassium 3.4 (3.4-5.0) mmol/L Chloride 101 (98-107) mmol/L Carbon Dioxide 26 (22-30) mmol/L Anion Gap 12 (4-12) mmol/L BUN 13 D (9-20) mg/dL Creatinine 0.80 (0.7-1.3) mg/dL Estim Creat Clear Calc 63 ml/min Estimated GFR > 60 (59 - ) Glucose 94 (65-110) mg/dL Lactic Acid 1.1 (0.7-2.0) mmol/L Calcium 9.2 (8.4-10.2) mg/dL Magnesium 2.0 (1.6-2.3) mg/dL Total Bilirubin 0.6 (0.2-1.3) mg/dL AST 43 (17-59) U/L ALT 35 (6-50) U/L Alkaline Phosphatase 117 (38-126) U/L Troponin I < 0.012 (0.000-0.034) ng/mL NT-Pro-B Natriuret Pep 81 (19.9-100) pg/mL Total Protein 8.0 (6.3-8.2) g/dL Albumin 4.4 (3.5-5.1) g/dL Influenza A (RT-PCR) Negative (Negative) Influenza B (RT-PCR) Negative (Negative) RSV (RT-PCR) Positive A (Negative) SARS-CoV-2 RNA (RT-PCR) Negative (Negative) <Neli Becerril, GENERAL TECHNICIAN - Last Filed: 05/24/24 13:18> Lab Results 05/24/24 05/24/24 Range/Units 13:51 13:58 WBC 6.3 (4.5-10.0) K/mm3 RBC 5.06 (4.6-6.20) M/mm3 Hgb 15.1 (14.0-18.0) g/dL Hct 46.2 (42.0-52.0) % MCV 91.3 (80-100) fl MCH 29.8 (26-34) pg MCHC 32.7 (32-36) g/dl RDW 13.4 (11.5-14.5) % Plt Count 164 (150-375) k/mm3 MPV 9.2 (7.4-10.4) fl Immature Gran % (Auto) 0.3 (0-0.5) % Neut % (Auto) 62.5 (45.5-73.1) % Lymph % (Auto) 25.2 (18.3-44.2) % [place] % (Auto) 10.9 H (2.6-8.5) % Eos % (Auto) 0.6 (0-4.4) % Baso % (Auto) 0.5 (0.2-1.2) % Lymph # (Auto) 1.59 (0.9-3.2) K/mm3 [place] # (Auto) 0.7 H (0.1-0.6) K/mm3 Eos # (Auto) 0.0 (0-0.3) K/mm3 Baso # (Auto) 0.0 (0.0-0.1) K/mm3 Abs Immat Gran (auto) 0.02 (0.00-0.031) K/mm3 Absolute Neuts (auto) 3.9 (1.3-6.7) K/mm3 Absolute Nucleated RBC 0.000 (0.0-0.012) K/mm3 Nucleated RBC % 0.0 (0.0-0.2) % PT 13.4 (11.1-14.7) Seconds INR 1.0 APTT 32.1 (22.3-36.8) Seconds Sodium 139 (137-145) mmol/L Potassium 3.4 (3.4-5.0) mmol/L Chloride 101 (98-107) mmol/L Carbon Dioxide 26 (22-30) mmol/L Anion Gap 12 (4-12) mmol/L BUN 13 D (9-20) mg/dL Creatinine 0.80 (0.7-1.3) mg/dL Estim Creat Clear Calc 63 ml/min Estimated GFR > 60 (59 - ) Glucose 94 (65-110) mg/dL Lactic Acid 1.1 (0.7-2.0) mmol/L Calcium 9.2 (8.4-10.2) mg/dL Magnesium 2.0 (1.6-2.3) mg/dL Total Bilirubin 0.6 (0.2-1.3) mg/dL AST 43 (17-59) U/L ALT 35 (6-50) U/L Alkaline Phosphatase 117 (38-126) U/L Troponin I < 0.012 (0.000-0.034) ng/mL NT-Pro-B Natriuret Pep 81 (19.9-100) pg/mL Total Protein 8.0 (6.3-8.2) g/dL Albumin 4.4 (3.5-5.1) g/dL Influenza A (RT-PCR) Negative (Negative) Influenza B (RT-PCR) Negative (Negative) RSV (RT-PCR) Positive A (Negative) SARS-CoV-2 RNA (RT-PCR) Negative (Negative) <Bishnu Mcghee MD - Last Filed: 05/24/24 19:32> Discharge Plan Discharge Clinical Impression: Respiratory syncytial virus (RSV), Acute exacerbation of chronic obstructive pulmonary disease <Neli Becerril APRN - Last Filed: 05/24/24 13:18> Patient Disposition: Home, Self-Care <Neli Becerril APRN - Last Filed: 05/24/24 13:18> Condition: Stable <Neli Becerril APRN - Last Filed: 05/24/24 13:18> Instructions: Antibiotic Form, Upper Respiratory Infection (ED), RSV (Respiratory Syncytial Virus) Infection (ED) <Neli Becerril APRN - Last Filed: 05/24/24 13:18> Patient Language: Turkmen <Neli Becerril APRN - Last Filed: 05/24/24 13:18> Prescriptions: New benzonatate 200 mg capsule 200 mg PO TID PRN (Reason: cough) Qty: 21 0RF No Action albuterol sulfate 90 mcg/actuation HFA aerosol inhaler 2 inh inhalation Q4H PRN (Reason: shortness of breath or wheezing) Qty: 8.5 2RF multivitamin [Daily Multi-Vitamin] Tablet 1 tablet PO DAILY magnesium 200 mg tablet 200 mg PO DAILY Trelegy Ellipta 100-62.5-25 mcg blister with device 1 inh inhalation DAILY Qty: 60 3RF Rx Instructions: Rinse mouth and spit after each use azithromycin [Zithromax] 250 mg tablet See Rx Instructions PO .COMPLEX Qty: 6 0RF Rx Instructions: For 250 mg dose pack: take 500 mg today (day 1), then 250 mg for 4 days (days 2-5) PO tramadol 50 mg tablet 50 mg PO Q6H PRN (Reason: pain) Qty: 60 0RF <Neli Becerril APRN - Last Filed: 05/24/24 13:18> Follow-up/Referrals: PHYSICIAN NOT ON STAFF,NONSTAFF [Non-Staff] - <Neli Becerril APRN - Last Filed: 05/24/24 13:18> Stand Alone Forms: Work/School Release IP <Neli Becerril APRN - Last Filed: 05/24/24 13:18>
[2024-05-24 13:57] LABS: Basophils Percent Auto 0.5 % (0.2-1.2); Eosinophils Percent Auto 0.6 % (0-4.4); Hematocrit 46.2 % (42.0-52.0); Hemoglobin 15.1 g/dL (14.0-18.0); Immature Granulocyte Absolute 0.02 K/mm3 (0.00-0.031); Immature Granulocyte Percent A 0.3 % (0-0.5); Lymphocytes Absolute Auto 1.59 K/mm3 (0.9-3.2); Lymphocytes Percent Auto 25.2 % (18.3-44.2); Mean Corpuscular HGB Conc 32.7 g/dl (32-36); Mean Corpuscular Hemoglobin 29.8 pg (26-34); Mean Corpuscular Volume 91.3 fl (80-100); Mean Platelet Volume 9.2 fl (7.4-10.4); Monocytes Absolute Auto 0.7 K/mm3 (0.1-0.6); Monocytes Percent Auto 10.9 % (2.6-8.5); Neutrophils Absolute Auto 3.9 K/mm3 (1.3-6.7); Neutrophils Percent Auto 62.5 % (45.5-73.1); Platelet Count Result 164 k/mm3 (150-375); Red Blood Count 5.06 M/mm3 (4.6-6.20); Red Cell Distribution Width 13.4 % (11.5-14.5); White Blood Count 6.3 K/mm3 (4.5-10.0)
[2024-05-24] MEDS: IPRATROPIUM 0.5 MG/ALBUTEROL SULFATE 2.5 MG AMPUL.NEB 3 ML INHALATION ×3 (14:00→14:43)
[2024-05-24 14:09] LABS: Alanine Aminotransferase 35 U/L (6-50); Albumin Level 4.4 g/dL (3.5-5.1); Alkaline Phosphatase 117 U/L (38-126); Anion Gap 12 mmol/L (4-12); Aspartate Amino Transferase 43 U/L (17-59); Bilirubin,Total 0.6 mg/dL (0.2-1.3); Blood Urea Nitrogen 13 mg/dL (9-20); Calcium 9.2 mg/dL (8.4-10.2); Carbon Dioxide 26 mmol/L (22-30); Chloride 101 mmol/L (98-107); Estimated CRCL calculation 63 ml/min; Estimated Glomerular Filt Rate > 60; Glucose 94 mg/dL (65-110); Potassium 3.4 mmol/L (3.4-5.0); Sodium 139 mmol/L (137-145)
[2024-05-24 14:12] LABS: Lactic Acid Reflex 1.1 mmol/L (0.7-2.0)
[2024-05-24 14:12] LABS: Prothrombin Time 13.4 Seconds (11.1-14.7)
[2024-05-24 14:13] LABS: Partial Thromboplastin Time 32.1 Seconds (22.3-36.8)
[2024-05-24 14:20] LABS: Troponin I < 0.012 ng/mL (0.000-0.034)
[2024-05-24 15:15] LABS: Influenza A QL RT-PCR Negative (Negative); Influenza B QL RT-PCR Negative (Negative); RSV RNA, RT-PCR Positive (Negative); SARS-CoV-2 RNA PCR Negative (Negative)
[2024-05-24] MEDS: SODIUM CHLORIDE 0.9% IV 1,000 ML 999 ML IV CONT (17:22)
[2024-05-24 17:23] LABS: NT Pro B Type Natriuretic Pept 81 pg/mL (19.9-100)
--- NOTE | 2024-05-24 19:19 | PC.NURSE ---
AMbulated patient with manager monitoring. Slight increase to 108 bpm, which decreased to 89 when stopping. EDP aware. Patient reports no distress.
== END 2024-05-24 19:55 | disposition home or self-care (01) ==
PROVIDERS: Registered Nurse; Emergency Provider Emergency Medicine
DX: J44.1 Chronic obstructive pulmonary disease with (acute) exacerbation (principal); B97.4 Respiratory syncytial virus as the cause of diseases classified elsewhere; Z85.47 Personal history of malignant neoplasm of testis; Z87.891 Personal history of nicotine dependence; Z20.822 Contact with and (suspected) exposure to COVID-19
CPT/HCPCS: 36415; 71046; 71275; 80053; 83605; 83735; 83880; 84484; 85025; 85610; 85730; 87637; 93005; 94640; 96360; 99284; J7030; Q9967

== ENCOUNTER 2024-09-15 08:02 | Outpatient (CLI) | payer OTHER, SELFPAY ==
--- OUTSIDE RECORDS SUMMARY | 2024-09-15 08:05 | XMS_ITS | Continuity of Care Document ---
Author Organization [facility] Address [address] [place] [address] [address] [place] [address] Phone Care Team Providers Care Fine Arts Model Name Role Phone Agustin Clark Unavailable Unavailable Procedures Procedure Date Therapeutic Activities Progress Note Manual Therapy Neuromuscular Re-Ed Therapeutic Exercise Therapeutic Exercise Manual Therapy Therapeutic Activities Neuromuscular Re-Ed Therapeutic Exercise Neuromuscular Re-Ed Manual Therapy Therapeutic Activities Neuromuscular Re-Ed Manual Therapy Therapeutic Activities Therapeutic Exercise Progress Note Therapeutic Activities Therapeutic Exercise Neuromuscular Re-Ed Manual Therapy Therapeutic Exercise Neuromuscular Re-Ed Manual Therapy Therapeutic Activities Therapeutic Activities Manual Therapy Therapeutic Exercise Neuromuscular Re-Ed Therapeutic Exercise Neuromuscular Re-Ed Therapeutic Activities Manual Therapy Therapeutic Activities Neuromuscular Re-Ed Therapeutic Exercise Progress Note Manual Therapy Therapeutic Activities Manual Therapy Therapeutic Exercise Neuromuscular Re-Ed Therapeutic Activities Neuromuscular Re-Ed Therapeutic Exercise Manual Therapy Neuromuscular Re-Ed Therapeutic Exercise Therapeutic Activities Manual Therapy Therapeutic Activities Progress Note Neuromuscular Re-Ed Manual Therapy Therapeutic Exercise Neuromuscular Re-Ed Therapeutic Exercise Therapeutic Activities Manual Therapy Hot or Cold Pack Therapeutic Exercise Therapeutic Activities Manual Therapy Neuromuscular Re-Ed OT Evaluation Low Complexity Therapeutic Exercise Therapeutic Activities Manual Therapy Advance Directives Directive Yes / No Effective Date File Name No Information Encounters Encounter Description Practice Location Reason(s) For Visit Diagnoses Date Provider Providers Copied on Encounter [facility] [place] [facility] [address] [place] [address], [id number], tel:[phone] [place] No Information 1 Yung Velez. . [facility] [place] [facility] [address] [place] [address], [id number], tel:[phone] [place] No Information 1 Yung Velez. . [facility] [place] [address], [place], [place], [id number], tel:[phone] [place] No Information 1 Yung Velez. . [facility], [place], [place], [id number], tel:[phone] [place] No Information 1 Barragan Agustin. . [facility], [place], [place], [id number], [place] tel:[phone] [place] No Information 1 Barragan Agustin. . [facility], [place], [place], [id number], [place] tel:[phone] [place] No Information 1 Barragan Agustin. . [facility], [place], [place], [id number], [place] tel:[phone] [place] No Information 1 Barragan Agustin. . [facility], [place], [place], [id number], [place] tel:[phone] [place] No Information 1 Barragan Agustin. . [facility], [place], [place], [id number], [place] tel:[phone] [place] No Information 1 Barragan Agustin. . [facility], [place], [place], [id number], [place] tel:[phone] [place] No Information 1 Barragan Agustin. . [facility], [place], [place], [id number], [place] tel:[phone] [place] No Information 1 Barragan Agustin. . [facility], [place], [place], [id number], [place] tel:[phone] [place] No Information 1 Barragan Agustin. . [facility], [place], [place], [id number], [place] tel:[phone] [place] No Information 1 Barragan Agustin. . [facility] [facility] [address], [place], [place], [id number], tel:[phone] [place] No Information 0 0 Dockins-H all Gemma. . [facility] [facility] [address], [place], [place], [id number], tel:[phone] [place] No Information 0 Barraganjojo Velez. . [facility], [address] [facility] [address], [place], [place], [id number], tel:[phone] [place] No Information 0 Yung Velez. . Family History Family Member Type Diagnosis Age At Onset No Information Payers Payer name Insurance type Covered constitution party ID Authoriza luke(s) [employer] [id number] Social History Type Description Quantity Date Captured Comments Sex Male Smoking Status No Information Chief Complaint And Reason For Visit No Information Reason For Referral Reason For Referral No Information Plan Of Treatment Date Type Action Status Goal Special diet education compl eted History Of Present Illness Encounter Date Complaint History Of Prese nt Illness No Information Functional Status Date Functional Assessmen t No Information Instructions Date Instruction Additional Infor mation Special diet education Related t o Underweight Exercise education Related to Un derweight Assessments Type Assessment Date No Information Patient Care Teams Name Effective Dates (start - stop) Status Members No Information
[2024-09-15 08:53] LABS: Basophils Percent Auto 0.7 % (0.2-1.2); Eosinophils Absolute Auto 0.2 K/mm3 (0-0.3); Eosinophils Percent Auto 3.1 % (0-4.4); Hematocrit 42.1 % (42.0-52.0); Hemoglobin 13.2 g/dL (14.0-18.0); Immature Granulocyte Absolute 0.01 K/mm3 (0.00-0.031); Immature Granulocyte Percent A 0.2 % (0-0.5); Lymphocytes Absolute Auto 1.33 K/mm3 (0.9-3.2); Lymphocytes Percent Auto 24.3 % (18.3-44.2); Mean Corpuscular HGB Conc 31.4 g/dl (32-36); Mean Corpuscular Hemoglobin 28.9 pg (26-34); Mean Corpuscular Volume 92.3 fl (80-100); Mean Platelet Volume 9.1 fl (7.4-10.4); Monocytes Absolute Auto 0.5 K/mm3 (0.1-0.6); Monocytes Percent Auto 8.2 % (2.6-8.5); Neutrophils Absolute Auto 3.5 K/mm3 (1.3-6.7); Neutrophils Percent Auto 63.5 % (45.5-73.1); Platelet Count Result 244 k/mm3 (150-375); Red Blood Count 4.56 M/mm3 (4.6-6.20); Red Cell Distribution Width 12.4 % (11.5-14.5); White Blood Count 5.5 K/mm3 (4.5-10.0)
[2024-09-15 09:08] LABS: Alanine Aminotransferase 26 U/L (6-50); Albumin Level 4.3 g/dL (3.5-5.1); Alkaline Phosphatase 164 U/L (38-126); Anion Gap 7 mmol/L (4-12); Aspartate Amino Transferase 31 U/L (17-59); Bilirubin,Total 0.7 mg/dL (0.2-1.3); Blood Urea Nitrogen 7 mg/dL (9-20); Calcium 9.3 mg/dL (8.4-10.2); Carbon Dioxide 31 mmol/L (22-30); Chloride 104 mmol/L (98-107); Cholesterol 150 mg/dL (0-200); Estimated Glomerular Filt Rate > 60; Glucose 97 mg/dL (65-110); HDL Direct 48 mg/dL; Potassium 3.6 mmol/L (3.4-5.0); Sodium 142 mmol/L (137-145); Triglycerides 96 mg/dL (<150)
[2024-09-15 09:19] LABS: LDL Cholesterol Direct 70 mg/dL
[2024-09-15 09:42] LABS: Prostate Specific Antigen 0.3 ng/mL (< OR = 4.0); Thyroid Stimulating Hormone 0.552 uIU/mL (0.465-4.680)
== END 2024-09-15 08:03 | disposition home or self-care (01) ==
PROVIDERS: Nurse Practitioner Family; PCP Nurse Practitioner; Visit Provider Internal Medicine Cardiovascular Disease
DX: J44.9 Chronic obstructive pulmonary disease, unspecified (principal); Z00.00 Encounter for general adult medical examination without abnormal findings; Z12.5 Encounter for screening for malignant neoplasm of prostate
CPT/HCPCS: 36415; 80053; 80061; 84153; 84443; 85025; G0103

== ENCOUNTER 2024-10-26 09:01 | Outpatient (CLI) | payer OTHER, SELFPAY ==
--- NOTE | ~2024-10-26 | US_ITS ---
Ankle Brachial Index with Ultrasound Dopplers and Pulse Volume Recordings Technique: Pressures in the arm and lower extremity were obtained. Additionally, arterial and pulse v olume waveforms were obtained bilaterally. Findings: Segmental pressures Right lower thigh: 118 Right calf: 123 Right posterior tibial: 104 Right dorsalis pedis: 92 Left lower thigh: 99 Left calf: 83 Left posterior tibial: 90 Left dorsalis pedis: 96 There are monophasic waveforms bilaterally. RENUKA Right 0.87 Left 0.80 TBI Right 0.55 Left 0.53 Impression: Mild peripheral arterial disease, as detailed above. Reviewed, dictated and finalized at location A. Impression: Mild peripheral arterial disease, as detailed above.
== END 2024-10-26 09:02 | disposition home or self-care (01) ==
PROVIDERS: PCP Nurse Practitioner; Visit Provider Internal Medicine Cardiovascular Disease
DX: I73.9 Peripheral vascular disease, unspecified (principal)
CPT/HCPCS: 93923